=== PATIENT | female | born 1975 | race Caucasian/White ===

== ENCOUNTER 2020-12-15 16:26 | Outpatient (REF) | payer OTHER, SELFPAY ==
--- NOTE | 2020-12-15 | MM_ITS ---
EXAMINATION: MM SCREENING DIGITAL BREAST TOMOSYNTHESIS, BILATERAL CLINICAL INFORMATION: Screening. Asymptomatic. The lifetime risk of breast cancer based on the Tyrer-Cuzick Model is 12.1%. COMPARISON: Mammography: 10/06/2019 and studies dating back to 06/28/2017. TECHNIQUE: Digital breast tomosynthesis is performed in both the craniocaudal and mediolateral oblique views along with computer-aided detection (CAD). Synthesized 2D images are generated from the tomosynthesis. FINDINGS: The breasts are heterogeneously dense, which may obscure small masses (ACR BI-RADS breast composition Category c). There is a stable parenchymal pattern within the right breast without new abnormal dominant mass or suspicious grouping of microcalcifications. Within the deep superior aspect of the left breast, approximately 7 cm from the nipple, there is a 1.2 x 0.8 cm partially circumscribed slightly lobulated density for which further evaluation with spot compression view and possible ultrasound is recommended. I do not definitely see a correlate on craniocaudal view, however, it is slightly lateral due to a large amount of dense tissue in that region. MM/MM tomosynthesis screening BI IMPRESSION: Left breast density for further evaluation as described. ASSESSMENT: BI-RADS 0: Incomplete - Need Additional Imaging Evaluation RECOMMENDATION: 1. Additional views of the left breast. 2. Targeted ultrasound if warranted after review of the additional views. 3. Radiology department staff will contact the patient for additional imaging. This patient's information was entered into a reminder system with a target due date for their next mammogram.
== END 2020-12-15 16:27 | disposition home or self-care (01) ==
LOC: HO.MAMMO 16:26
PROVIDERS: PCP Internal Medicine; Visit Provider Internal Medicine
DX: Z12.31 Encounter for screening mammogram for malignant neoplasm of breast (principal)
CPT/HCPCS: 77063; 77067

== ENCOUNTER 2020-12-22 07:43 | Outpatient (REF) | payer OTHER, SELFPAY ==
--- NOTE | 2020-12-22 07:49 | MM_ITS ---
EXAMINATION: MM DIAGNOSTIC DIGITAL BREAST TOMOSYNTHESIS, LEFT CLINICAL INFORMATION: Recall from screening for question of asymmetric density posterior mid breast on MLO view without CT correlate. COMPARISON: Mammography: 12/15/2020, 10/06/2019, 07/16/2018 TECHNIQUE: Digital breast tomosynthesis is performed. 2D images are generated from the tomosynthesis. The following views are obtained: 3-D ML, 3-D spot MLO FINDINGS: The breasts are heterogeneously dense, which may obscure small masses (ACR BI-RADS breast composition Category c). The additional views show no asymmetric density or mass or developing density from prior studies. In retrospect, finding noted on recent screening exam shows mixture of fibroglandular and fatty tissue composition consistent with shifting fibroglandular densities. Results are discussed with the patient at time of visit. MM/MM tomosynthesis added views L IMPRESSION: Additional views show no significant changes from prior studies. ASSESSMENT: BI-RADS 1: Negative RECOMMENDATION: Routine annual mammography screening. This patient's information was entered into a reminder system with a target due date for their next mammogram.
== END 2020-12-22 07:44 | disposition home or self-care (01) ==
LOC: HO.MAMMO 07:43
PROVIDERS: Visit Provider Internal Medicine
DX: R92.2 Inconclusive mammogram (principal)
CPT/HCPCS: 77061; 77065

== ENCOUNTER 2022-05-24 08:19 | Outpatient (REF) | payer OTHER, SELFPAY ==
--- NOTE | ~2022-05-24 | MM_ITS ---
EXAMINATION: MM SCREENING DIGITAL BREAST TOMOSYNTHESIS, BILATERAL CLINICAL INFORMATION: Screening. Asymptomatic. The lifetime risk of breast cancer based on the Tyrer-Cuzick Model is 12%. COMPARISON: Mammography: 12/22/2020, 12/15/2020, 10/06/2019, 07/16/2018 TECHNIQUE: Digital breast tomosynthesis is performed in both the craniocaudal and mediolateral oblique views along with computer-aided detection (CAD). Synthesized 2D images are generated from the tomosynthesis. FINDINGS: The breasts are heterogeneously dense, which may obscure small masses (ACR BI-RADS breast composition Category c). There are no significant masses, abnormal calcifications, or other abnormalities. Parenchymal pattern is similar to prior study. No significant changes. MM/MM tomosynthesis screening BI IMPRESSION: No mammographic evidence of malignancy. ASSESSMENT: BI-RADS 1: Negative RECOMMENDATION: Routine annual mammography screening. This patient's information was entered into a reminder system with a target due date for their next mammogram.
== END 2022-05-24 08:20 | disposition home or self-care (01) ==
LOC: HO.MAMMO 08:19
PROVIDERS: PCP Internal Medicine; Visit Provider Internal Medicine
DX: Z12.31 Encounter for screening mammogram for malignant neoplasm of breast (principal)
CPT/HCPCS: 77063; 77067

== ENCOUNTER → 2023-06-05 15:45 | Outpatient (BNV) | payer OTHER, SELFPAY | PROVIDERS: PCP Student in an Organized Health Care Education/Training Program; Visit Provider Radiology Diagnostic Radiology | DX: Z12.31 Encounter for screening mammogram for malignant neoplasm of breast (principal) | CPT/HCPCS: 77063; 77067 ==

== ENCOUNTER 2023-06-05 15:49 | Outpatient (REF) | payer OTHER, SELFPAY ==
--- NOTE | ~2023-06-05 | MM_ITS ---
EXAMINATION: MM SCREENING DIGITAL BREAST TOMOSYNTHESIS, BILATERAL CLINICAL INFORMATION: Screening. Asymptomatic. The lifetime risk of breast cancer based on the Tyrer-Cuzick Model is 10.8%. COMPARISON: Mammography: This study is compared with prior exams dating back to 2019. TECHNIQUE: Digital breast tomosynthesis is performed in both the craniocaudal and mediolateral oblique views along with computer-aided detection (CAD). Synthesized 2D images are generated from the tomosynthesis. FINDINGS: The breasts are heterogeneously dense, which may obscure small masses (ACR BI-RADS breast composition Category c). In the lower inner quadrant of the right breast, there is an asymmetry for which additional mammographic imaging is advised. In the left breast, there are no significant masses, abnormal calcifications, or other abnormalities. MM/MM tomosynthesis screening BI IMPRESSION: Asymmetry of the lower inner quadrant right breast warrants additional mammographic imaging. No mammographic signs of malignancy left breast. ASSESSMENT: BI-RADS BI-RADS 0 - Incomplete: Needs additional Imaging. RECOMMENDATION: 1. Additional views of the right breast 2. Targeted ultrasound if warranted after review of the additional views. 3. Radiology department staff will contact the patient for additional imaging. Additional Imaging required This examination should not preclude the clinical evaluation of a suspicious palpable abnormality. This patient's information was entered into a reminder system with a target due date for their next mammogram.
== END 2023-06-05 15:50 | disposition home or self-care (01) ==
LOC: HO.MAMMO 15:49
PROVIDERS: PCP Student in an Organized Health Care Education/Training Program; Visit Provider Internal Medicine
DX: Z12.31 Encounter for screening mammogram for malignant neoplasm of breast (principal)
CPT/HCPCS: 77063; 77067

== ENCOUNTER 2023-07-10 13:22 | Outpatient (REF) | payer OTHER, SELFPAY ==
--- NOTE | ~2023-07-10 | US_ITS ---
EXAMINATION: MM DIAGNOSTIC RIGHT BREAST TOMOSYNTHESIS US BREAST LIMITED, RIGHT MAMMOGRAPHY: CLINICAL INFORMATION: Follow-up one view asymmetry inferomedial right breast seen on screening exam MLO view only. The lifetime risk of breast cancer based on the Tyrer-Cuzick Model is 10.8%. COMPARISON: Mammography: Screening mammography 06/05/2023. Studies dating back to 2020. TECHNIQUE: Digital right tomosynthesis is performed in both the medial lateral views, as well as a right spot magnification 3-D MLO view, along with computer-aided detection (CAD). Synthesized 2D images are generated from the tomosynthesis. FINDINGS: The breasts are heterogeneously dense, which may obscure small masses (ACR BI-RADS breast composition Category c). Diagnostic views demonstrates no definite persistent mass or persistent asymmetry right breast inferiorly. Results are provided to the patient at time of visit by the technologist. ULTRASOUND: CLINICAL INFORMATION: Evaluate one view asymmetry inferomedial right breast seen on screening exam MLO view only. COMPARISON: None TECHNIQUE: Targeted sonographic evaluation right breast 3-9 o'clock axis was performed using a high frequency linear transducer. Selected archived documentation. FINDINGS: RIGHT BREAST: There is somewhat dense fibroglandular tissue. No suspicious mass is seen. No cystic abnormality. There is no pathologic acoustic shadowing. No correlate to the mammographic focus of concern. US/US breast RT limited mamm only IMPRESSION: No mammographic or sonographic evidence of malignancy. Recommend the patient return to routine annual screening mammography. OVERALL ASSESSMENT: Mammography: BI-RADS 1 - Negative Ultrasound: BI-RADS 1 - Negative RECOMMENDATION: 1 year F/U This patient's information was entered into a reminder system with a target due date for their next mammogram.
== END 2023-07-10 13:23 | disposition home or self-care (01) ==
LOC: HO.MAMMO 13:22
PROVIDERS: PCP Internal Medicine; Visit Provider Student in an Organized Health Care Education/Training Program
DX: R92.8 Other abnormal and inconclusive findings on diagnostic imaging of breast (principal)
CPT/HCPCS: 76642; 77061; 77065

== ENCOUNTER → 2023-07-10 13:30 | Outpatient (BNV) | payer OTHER, SELFPAY | PROVIDERS: PCP Internal Medicine; Visit Provider Radiology Diagnostic Radiology | DX: N64.89 Other specified disorders of breast (principal) | CPT/HCPCS: 76642; 77061; 77065 ==

== ENCOUNTER → 2024-07-16 10:30 | Outpatient (BNV) | payer OTHER, SELFPAY | PROVIDERS: PCP Student in an Organized Health Care Education/Training Program; Visit Provider Internal Medicine | DX: Z12.31 Encounter for screening mammogram for malignant neoplasm of breast (principal) | CPT/HCPCS: 77063; 77067 ==

== ENCOUNTER 2024-07-16 10:33 | Outpatient (REF) | payer OTHER, SELFPAY ==
--- NOTE | ~2024-07-16 | MM_ITS ---
EXAMINATION: MM SCREENING DIGITAL BREAST TOMOSYNTHESIS, BILATERAL CLINICAL INFORMATION: Screening. Asymptomatic. COMPARISON: Mammography: Comparison is made with available priors. TECHNIQUE: Digital breast tomosynthesis is performed in both the craniocaudal and mediolateral oblique views along with computer-aided detection (CAD). Synthesized 2D images are generated from the tomosynthesis. FINDINGS: The breasts are heterogeneously dense, which may obscure small masses (ACR BI-RADS breast composition Category c). There are no significant masses, abnormal calcifications, or other abnormalities. MM/MM tomosynthesis screening BI IMPRESSION: No mammographic evidence of malignancy. ASSESSMENT: BI-RADS BI-RADS 1 - Negative RECOMMENDATION: Routine annual mammography screening. 1 year F/U This examination should not preclude the clinical evaluation of a suspicious palpable abnormality. This patient's information was entered into a reminder system with a target due date for their next mammogram. Electronically signed by: Elizabeth Russ DO 08/13/2024 08:53 PM EDT
== END 2024-07-16 10:34 | disposition home or self-care (01) ==
LOC: HO.MAMMO 10:33
PROVIDERS: PCP Student in an Organized Health Care Education/Training Program; Visit Provider Student in an Organized Health Care Education/Training Program
DX: Z12.31 Encounter for screening mammogram for malignant neoplasm of breast (principal)
CPT/HCPCS: 77063; 77067

== ENCOUNTER 2025-07-14 09:04 | Outpatient (REF) | payer OTHER, SELFPAY ==
--- NOTE | 2025-07-14 09:07 | EMG_ITS ---
Patient Complaints: Left upper extremity paresthesia, Rule out C7 radiculopathy Left median and ulnar motor and sensory studies were performed left radial sensory and median and lateral antecubital brachial sensory studies were performed and EMG needle examination was performed. Impression: This study revealed mild left ulnar neuropathy across elbow. Otherwise no significant abnormality was noted. MTDD
--- OUTSIDE RECORDS SUMMARY | 2025-07-14 09:59 | XMS_ITS ---
Author Name [facility] Organization Unknown History of Medication Use Medication Directions Dispensed Refills Start Date End Date Stat us benzonatate (TESSALON) 200 mg capsule Take 1 capsule (200 mg total) by mouth 3 (three) times daily as needed for cough for up to 7 days. 09/29/2024 10/07/2024 active sertraline (ZOLOFT) 100 mg tablet Take 1 tablet (100 mg total) by mouth daily. 08/28/2024 active No known medications No known medications active Problems Problem Status Onset Date Problem Type Date of Resolution Source Rupture of ulnar collateral ligament of right thumb, subsequent encounter active EncounterDiagnosisAct CCT Acute cough active EncounterDiagnosisAct CT_[facility]ALEUC Encounters Encounter Type Encounter Reason Primary Diagnosis Location Date [facility] Pain in right finger(s) Pain in right finger(s) [facility] 06/17[facility]2025 [facility] 06/03/2025 Ambulatory Pain in right finger(s) Pain in right finger(s) [facility] 06/03/2025 Ambulatory Pain in right finger(s) Pain in right finger(s) [facility] 05/13/2025 Ambulatory Finger Injury Finger Injury [facility] 05/07/2025 Ambulatory Cough [facility] 09/29/2024 Ambulatory [facility] 09/29/2024 Care Team Organization Name Specialty Phone Email Start Date End [facility] 05/08/2025 [facility] 05/07/2025 [place] [facility] 05/07/2025 [facility] 09/29/2024
--- OUTSIDE RECORDS SUMMARY | 2025-07-14 09:59 | XMS_ITS | Clinical Summary ---
Author Organization [facility] Address [address] [place] [id number] Phone Care Team Providers Care Intelligence Operations Specialist Name Role Phone Alison Peguero MD Primary Care Provider Allergies No known active allergies Medications no115/iron/foli c acid ( 19 ORAL) Active ergocalciferol (DRISDOL) 50,000 unit capsule TAKE 1 CAPSULE BY MOUTH EVERY WEEK FOR 56 DAYS Active hydroCHLOROthia zide 25 MG tablet Take 25 mg by mouth daily. 08/28/2024 Active LORazepam (ATIVAN) 0.5 MG tablet TAKE 1 TABLET BY MOUTH DAILY NEEDED FOR PANIC ATTACK FOR 10 DAYS 06/03/2024 Active progesterone (PROMETRIUM) 200 mg capsule Activ e sertraline (ZOLOFT) 100 MG tablet Take 100 mg by mouth daily. 08/28/2024 Active Encounters Date Type Department Care Team Description 04/24/2025 4:30 PM EDT Office Visit [facility] [address] [address] Mary Emerson, SIRISHA Acute upper respiratory infection (Primary Dx); Sore throat from Last 3 Months Social History Tobacco Use Types Packs/Day Years Used Date Smoking Tobacco: Never Smokeless Tobacco: Never Tobacco Cessation:Counseling Given: Not Answered Education Answer Date Recorded Are you interested in more education? Not on eloy e 03/04/2024 Are you concerned about learning? Not on file 03/04/2024 No 03/04/2024 No 03/04/2024 Digital Access Answer Date Recorded No 03/04/2024 No 03/04/2024 Reliable internet access at home? Not on file 03/04/2024 Device with a working camera? Not on file Comments Unknown Sex and Gender Information Value Date Recorded Sex Assigned at Not on file Legal Sex Female 9:26 PM EDT Gender Identity Not on file Sexual Orientation Not on file Last Filed Vital Signs Vital Sign Reading Time Taken Comments Blood Pressure 134/95 04/24/2025 4:34 PM EDT Pulse 84 04/24/2025 4:34 PM EDT Temperature 37.6 C (99.6 F) 04/24/2025 4:34 PM EDT Respiratory Rate 16 04/24/2025 4:34 PM EDT Oxygen Saturation 97% 04/24/2025 4:34 PM EDT Inhaled Oxygen Concentration - - Weight 81.6 kg (180 lb) 04/24/2025 4:34 PM EDT Height 172.7 cm (5' 8 ) 04/24/2025 4:34 PM EDT Body Mass Index 27.37 04/24/2025 4:34 PM EDT Plan of Treatment Health Maintenance Due Date Last Done Comments LIPID PANEL 1977 POTASSIUM LEVEL 1977 DEPRESSION SCREENING 1989 HEPATITIS C SCREENING 1995 HIV ONE-TIME SCREENING (18-6 5 YEARS) 1995 PAP SMEAR 1998 SCREENING FOR DIABETES 02/15/2012 COLOGUARD 2022 COLONOSCOPY 2022 COLORECTAL CANCER SCREENING 2022 FIT TEST 2022 FOBT 2022 SIGMOIDOSCOPY 2022 VIRTUAL COLONOSCOPY 2022 COVID-19 VACCINE (4 - 2023-2 5 season) 2024 11/12/2021, 02/23/2021, 02/02/2021 MAMMOGRAM 06/05/2025 06/05/2023 Adult Td,Tdap Booster 07/14/2030 07/14/2020 , 11/21/2010 SMOKING STATUS SCREENING (On ce After 26 Yrs) Completed 04/24/2025 HEPATITIS A VACCINES Aged Out No long er eligible based on patient's age to complete this topic HIB VACCINES Aged Out No longer eligi ble based on patient's age to complete this topic MENINGOCOCCAL VACCINES (ACWY) Aged Out No longer eligible based on patient's age to complete this topic MENINGOCOCCAL VACCINES (B) Aged Out N o longer eligible based on patient's age to complete this topic PNEUMOCOCCAL VACCINES (0-49 years) Aged Out No longer eligible b ased on patient's age to complete this topic Medical Devices Not on file Procedures Procedure Name Priority Date/Time Associated Diagnosis Comments POCT RAPID STREP A Routine 04/24/2025 4: 42 PM EDT Sore throat POCT COVID-19 RT-PCR/INFLUENZA A & B/RSV CEPHEID Routine 04/24/2025 4:40 PM EDT Sore throat from Last 3 Months Results * POCT Rapid Strep A (04/24/2025 4:42 PM EDT) [facility] Strep A, PCR Not Detected Not Detected C [facility] 04/24/2025 4:42 PM EDT 04/24/2025 5:09 PM EDT Mary Emerson TREE PRUNER POINT OF CARE TEST ORDE RABAURA Final Result [facility] [place] [id number], [facility] [phone] * POCT COVID-19 RT-PCR/Influenza A & B/RSV (Cepheid) (04/24/2025 4:40 PM EDT) [facility] RSV PCR Negative Negative [facility] SARS-CoV-2 (COVID-19) Negative Negative [facility] POC Influenza A PCR Negative Negative [facility] Influenza B PCR Negative Negative [facility] 04/24/2025 4:40 PM EDT 04/24/2025 5:20 PM EDT Mary Emerson CNP POINT OF CARE TEST ORDE RABAURA Final Result [facility] [address] [id number], [facility] [phone] from Last 3 Months Insurance [employer]IGNA PPO CIGNA PPO CIGNA PPO CIGNA PPO [employer]IG[employer] PPO [employer]IG[employer] PPO Care Teams Intelligence Operations Specialist Relationship Specialty Start Date End Date Alison Peguero MD [address] [phone] PCP - General Family Medicine 04/24/25 Additional Source Comments The information contained in this document represents components of the legal health record. It is not the complete legal health record.[facility]
--- OUTSIDE RECORDS SUMMARY | 2025-07-14 09:59 | XMS_ITS | Clinical Summary ---
Author Organization [address] Address [address] [place] [phone] Care Team Providers Care Rodent Exterminator Name Role Phone Pcp, Does Not Have A Primary Care Provider Unava ilable Allergies No known active allergies Medications sertraline (ZOLOFT) 100 mg tablet Take 1 tablet (100 mg total) by mouth daily. 08/28/2024 Active hydroCHLOROthiaz daniella (HYDRODIURIL) 25 mg tablet Take 1 tablet (25 mg total) by mouth daily. 08/28/2024 Active LORazepam (ATIVAN) 0.5 mg tablet TAKE 1 TABLET BY MOUTH DAILY NEEDED FOR PANIC ATTACK FOR 10 DAYS 06/03/2024 Active Family History Relation Name Status Comments Father Alive Mother Alive Social History Tobacco Use Types Packs/Day Years Used Date Smoking Tobacco: Never Smokeless Tobacco: Never Tobacco Cessation:Counseling Given: Not Answered Alcohol Use Standard Drinks/Week Comments Yes 0 (1 standard drink = 0.6 oz pur e alcohol) Comments Unknown Sex and Gender Information Value Date Recorded Sex Assigned at Not on file Legal Sex Female 3:38 PM EST Gender Identity Not on file Sexual Orientation Not on file Last Filed Vital Signs Vital Sign Reading Time Taken Comments Blood Pressure 155/99 09/29/2024 5:55 PM EST Pulse 69 09/29/2024 5:55 PM EST Temperature 36.8 C (98.2 F) 09/29/2024 5:25 PM EST Respiratory Rate 16 09/29/2024 5:25 PM EST Oxygen Saturation 99% 09/29/2024 5:55 PM EST Inhaled Oxygen Concentration - - Weight 81.6 kg (180 lb) 09/29/2024 5:25 PM EST Height 172.7 cm (5' 8 ) 09/29/2024 5:25 PM EST Body Mass Index 27.37 09/29/2024 5:25 PM EST Plan of Treatment Health Maintenance Due Date Last Done Comments HIV screening 1990 Hepatitis C screening 1995 Cervical cancer screening 1998 Lipid disorder screening 2017 Tetanus adult (Td q 10,TDAP once) 11/21/2020 11/21/2010 Colon cancer screening, Colonoscopy 2022 Diabetes screening 2022 Covid-19 vaccine series ( season) 2024 11/12/2021, 02/23/2021, 02/02/2021 Breast cancer screening 06/05/2025 06/05/2023 Influenza vaccine 07/27/2025 08/25/2022, , 09/24/2019, Additional history exists RSV Immunization (1 - 1-dose 75+ series) 02/15/2052 Meningococcal Vaccine Aged Out No fish jolynn eligible based on patient's age to complete this topic Pneumococcal Vaccine (2 - 49 years) Aged Out No longer eligible based on patient's age to complete this topic Insurance CIGNA CIGNA Care Teams Rodent Exterminator Relationship Specialty Start Date End Date Pcp, Does Not Have A PCP - General 09/29/24
--- OUTSIDE RECORDS SUMMARY | 2025-07-14 09:59 | XMS_ITS | Clinical Summary ---
Author Organization [facility] Address [address] [place] [address] Care Team Providers Care Sample Maker Name Role Phone Louise Peguero MD Primary Care Provider [phone] Allergies No known active allergies Medications No known medications Active Problems No known active problems Encounters Date Type Department Care Team Description 06/17/2025 9:45 AM EDT [place] [address] Sarah Lino PA 06/17/2025 9:30 AM [place] [address] Sarah Lino PA Rupture of ulnar collateral ligament of right thumb, subsequent encounter (Primary Dx) 06/03/2025 8:20 AM EDT [place] [address] Anthony Powell MD 06/03/2025 8:15 AM ED[place] [address] Anthony Powell MD Pain of finger of right hand (Primary Dx); Rupture of ulnar collateral ligament of thumb, right, subsequent encounter 05/13/2025 10:45 [place] [address] Anthony Powell MD Pain of right thumb (Primary Dx) 05/07/2025 3:35 PM EDT Office Visit [facility] [address] [place] [address] Charli Hammer MD Duncan, Kiersten B, RAVEN Pain of right thumb (Primary Dx) 05/07/2025 Travel from Last 3 Months Social History Tobacco Use Types Packs/Day Years Used Date Smoking Tobacco: Never Smokeless Tobacco: Never Tobacco Cessation:Counseling Given: Not Answered Comments Unknown Sex and Gender Information Value Date Recorded Sex Assigned at Not on file Legal Sex Female 3:32 PM EDT Gender Identity Not on file Sexual Orientation Not on file Last Filed Vital Signs Vital Sign Reading Time Taken Comments Blood Pressure 122/89 05/07/2025 4:12 PM EDT Pulse 69 05/07/2025 4:12 PM EDT Temperature 36.9 C (98.5 F) 05/07/2025 4:12 PM EDT Respiratory Rate 18 05/07/2025 4:12 PM EDT Oxygen Saturation 99% 05/07/2025 4:12 PM EDT Inhaled Oxygen Concentration - - Weight 81.6 kg (180 lb) 05/07/2025 4:12 PM EDT Height 172.7 cm (5' 8 ) 05/07/2025 4:12 PM EDT Body Mass Index 27.37 05/07/2025 4:12 PM EDT Plan of Treatment Upcoming Encounters Date Type Department Care Team (Late st Contact Info) Description 07/15/2025 9:45 AM EDT [facility] [address] [place] [address] Anthony Powell MD [address] [place] [id number] Health Maintenance Due Date Last Done Comments Hepatitis C Virus Screening 1977 HIV Screening 1990 DTaP/Tdap/Td Vaccines (1 - Tdap) 02/15/1996 Hepatitis B Vaccines (1 of 3 - 19+ 3-dose series) 02/15/1996 Pap Smear (Ages 21-65) 1998 Mammogram 2017 Colonoscopy 2022 COVID-19 Vaccine ( season) 2024 11/12/2021, 02/23/2021, 02/02/2021 Influenza Vaccine 06/26/2025 08/25/2022, , 08/06/2020, Additional history exists Pneumococcal Vaccine: Pediatric (0-5 Years) and At-Risk Patients (6 to 49 Years) Aged Out No longer eligible based on patient's age to complete this topic Procedures Procedure Name Priority Date/Time Associated Diagnosis Comments XR FINGER (1ST) 2+ VIEWS-RIGHT Routine 06/17/2025 9:46 AM EDT Rupture of ulnar collateral ligament of right thumb, subsequent encounter XR FINGER (1ST) 2+ VIEWS-RIGHT Routine 06/03/2025 8:28 AM EDT Pain of finger of right hand XR HAND 3+ VIEWS-RIGHT Routine 05/08/2025 3:22 PM EDT Pain of right thumb from Last 3 Months Results * XR Finger (1st) 2+ views-Right (06/17/2025 9:46 AM EDT) Only the most recent of2 resultswithin the time period is included. Narrative OAH - 06/17/2025 9:46 AM EDT This exam was performed in office at [facility] and images reviewed by orthopedic provider. Any findings are documented within ambulatory encounter note on date of service. Sarah GARCIA IMG DIAGNOSTIC IMAGING ORDER HENRY Final Result OAH * XR Hand 3+ views-Right (05/08/2025 3:22 PM EDT) Anatomical Region Laterality Modality Hand Right Computed Radiogr aphy 05/08/2025 2:30 PM EDT 05/08/2025 2:30 PM EDT Impressions 05/08/2025 7:16 PM EDT Tiny acute avulsion fracture off of the medial base of the proximal phalanx of the right thumb. Electronically signed by: Louise Peterson MD 05/08/2025 07:16 PM EDT Thank you for referring your patient to us, Louise Peterson MD [phone] (Electronically Signed - 05/08/2025 19:16) Narrative 05/08/2025 7:16 PM EDT PROCEDURE: RADIOGRAPHS OF THE RIGHT HAND COMPLETE 3 OR MORE VIEWS CLINICAL INDICATION: The patient is 50 years old and is Female; Order fell on thumb today. eval for fracture tenderness proximally.; Patient States: Pain and swelling 1st MCP jt TECHNIQUE: Frontal, lateral and oblique views of the right hand. COMPARISON: No relevant prior studies available. FINDINGS: BONES/JOINTS: Tiny acute avulsion fracture off of the medial base of the proximal phalanx of the right thumb. There are degenerative changes involving the DIP joint of the index finger. No dislocation. SOFT TISSUES: Unremarkable. No radiopaque foreign body. Procedure Note Louise Peterson MD - 05/08/2025 PROCEDURE: RADIOGRAPHS OF THE RIGHT HAND COMPLETE 3 OR MORE VIEWS CLINICAL INDICATION: The patient is 50 years old and is Female; Order fell on thumbtoday. eval for fracture tenderness proximally.; Patient States: Pain andswelling 1st MCP jt TECHNIQUE: Frontal, lateral and oblique views of the right hand. COMPARISON: No relevant prior studies available. FINDINGS: BONES/JOINTS: Tiny acute avulsion fracture off of the medial base of theproximal phalanx of the right thumb. There are degenerative changes involving the DIP joint of the indexfinger. No dislocation. SOFT TISSUES: Unremarkable. No radiopaque foreign body. IMPRESSION: Tiny acute avulsion fracture off of the medial base of the proximalphalanx of the right thumb. Electronically signed by: Louise Peterson MD 05/08/2025 07:16 PM EDT RPWorkstation: [id number] Thank you for referring your patient to us, Louise Peterson MD [id number] (Electronically Signed - 05/08/2025 19:16) us Priscilla Ambrocio APRN IMG DIAGNOSTIC IMAGING OR DERABLES Final Result from Last 3 Months Insurance [facility] CIGNA HMO Care Teams Sample Maker Relationship Specialty Start Date End Date Louise Peguero MD [address] [place] [phone] PCP - General Internal Medicine 05/07/25
== END 2025-07-14 09:05 | disposition home or self-care (01) ==
LOC: HO.NEURO 09:04
PROVIDERS: PCP Student in an Organized Health Care Education/Training Program; Visit Provider Student in an Organized Health Care Education/Training Program
DX: R20.2 Paresthesia of skin (principal)
CPT/HCPCS: 95886; 95910

== ENCOUNTER → 2025-07-14 09:07 | Outpatient (BNV) | payer OTHER, SELFPAY | PROVIDERS: PCP Student in an Organized Health Care Education/Training Program; Visit Provider Psychiatry & Neurology Neurology | DX: R20.2 Paresthesia of skin (principal) | CPT/HCPCS: 95886; 95910 ==

== ENCOUNTER 2025-08-01 07:57 | Outpatient (REF) | payer OTHER, SELFPAY ==
--- NOTE | ~2025-08-01 | MM_ITS ---
EXAMINATION: MM SCREENING DIGITAL BREAST TOMOSYNTHESIS, BILATERAL CLINICAL INFORMATION: Screening. Asymptomatic. COMPARISON: Mammography: Comparison is made with available priors TECHNIQUE: Digital breast mammography with tomosynthesis is performed in both the craniocaudal and mediolateral oblique views along with computer-aided detection (CAD). FINDINGS: The breasts are heterogeneously dense, which may obscure small masses (ACR BI-RADS breast composition Category c). There are no significant masses, abnormal calcifications, or other abnormalities. MM/MM tomosynthesis screening BI IMPRESSION: No mammographic evidence of malignancy. ASSESSMENT: BI-RADS BI-RADS 1 - Negative RECOMMENDATION: Routine annual mammography screening. 1 year F/U This examination should not preclude the clinical evaluation of a suspicious palpable abnormality. This patient's information was entered into a reminder system with a target due date for their next mammogram. Electronically signed by: Elizabeth Russ DO 08/04/2025 12:26 PM EDT
--- OUTSIDE RECORDS SUMMARY | 2025-08-01 08:00 | XMS_ITS | Clinical Summary ---
Author Organization [facility] Address [address] [place] [phone] Phone Care Team Providers Care Business Operations Consultant Name Role Phone Alison Peguero MD Primary Care Provider [phone] Allergies No known active allergies Medications no115/iron/foli [...] 100 mg by mouth daily. 08/28/2024 Active Social History Tobacco Use Types Packs/Day Years [...] HEPATITIS C SCREENING 1995 HIV ONE-TIME SCREENING (18-65 YEARS) 1995 PAP SMEAR 1998 SCREENING FOR DIABETES 02/15/2012 COLOGUARD 2022 COLONOSCOPY 2022 COLORECTAL CANCER SCREENING 2022 FIT TEST 2022 FOBT 2022 SIGMOIDOSCOPY 2022 VIRTUAL COLONOSCOPY 2022 MAMMOGRAM 06/05/2025 06/05/2023 INFLUENZA VACCINE (#1) 2025 , 08/06/2020, 09/24/2019, Additional history exists COVID-19 VACCINE (2024- season) 2025 11/12/2021, 02/23/2021, 02/02/2021 Adult Td,Tdap Booster 07/14/2030 07/14/2020, 010 SMOKING STATUS SCREENING (Once After 26 Yrs) Completed 04/24/2025 HEPATITIS A [...] (0-49 years) Aged Out No longer eligible based on patient's age to complete this topic Medical Devices Not on file Insurance CIGNA PPO CIGNA PPO CIGNA PPO CIGNA PPO CIGNA PPO CIGNA PPO Care Teams Business Operations Consultant Relationship Specialty Start Date End Date Alison Peguero MD [address] [facility] [address] [place] [phone] PCP - General Family Medicine 04/24/25 Additional Source Comments The information contained in this document represents components of the legal health record. It is not the complete legal health record.[facility]
--- OUTSIDE RECORDS SUMMARY | 2025-08-01 08:00 | XMS_ITS | Clinical Summary ---
Author Organization [facility] Address [address] [place] [address] Care Team Providers Care In Flight Refueling Manager Name Role Phone Louise Peguero MD Primary Care Provider [phone] Allergies No known active allergies Medications No known medications Active Problems No known active problems Encounters Date Type Department Care Team Description 07/15/2025 9:45 AM EDT [place] [address] Anthony Powell MD Rupture of ulnar collateral ligament of right thumb, subsequent encounter (Primary Dx) 06/17/2025 9:45 AM EDT Ancillary Procedure Orth[facility] [address] [address] Sarah Lino PA 06/17/2025 9:30 AM EDT [place] [address] Sarah Lino PA Rupture of ulnar collateral ligament of right thumb, subsequent encounter (Primary Dx) 06/03/2025 8:20 AM EDT Ancillary Procedure [place] [address] Anthony Powell MD 06/03/2025 8:15 AM EDT Office Visit [facility] [address] [address] Anthony Powell MD Pain of finger of right hand (Primary Dx); Rupture of ulnar collateral ligament of thumb, right, subsequent encounter 05/13/2025 10:45 [place] [address] Anthony Powell MD Pain of right thumb (Primary Dx) 05/07/2025 3:35 PM EDT [facility] [address] [place] [address] Charli Hammer MD Duncan, Kiersten B, APRN Pain of right thumb (Primary Dx) 05/07/2025 [...] 05/07/2025 4:12 PM EDT Plan of Treatment Health Maintenance Due Date Last Done Comments Hepatitis C Virus Screening 1977 HIV Screening 1990 DTaP/Tdap/Td Vaccines (1 - Tdap) 02/15/1996 Hepatitis B Vaccines (1 of 3 - 19+ 3-dose series) 02/15/1996 Pap Smear (Ages 21-65) 1998 Mammogram 2017 Colonoscopy 2022 COVID-19 Vaccine ( - season) 2024 11/12/2021, 02/23/2021, 02/02/2021 Influenza Vaccine [...] was performed in office at [facility] and images reviewed by orthopedic provider. Any [...] your patient to us, Louise Peterson MD [id number] (Electronically Signed - 05/08/2025 19:16) Narrative 05/08/2025 [...] Peterson MD 05/08/2025 07:16 PM EDT RPWorkstation: [id number] Thank you for referring your patient to us, Louise Peterson MD [id number] (Electronically Signed - 05/08/2025 19:16) Priscilla Ambrocio APRN IMG DIAGNOSTIC IMAGING OR DERABLES Final Result from Last 3 Months [facility] Care Teams In Flight Refueling Manager Relationship Specialty Start Date End Date Louise Pegueor MD [address] [place] [phone] PCP - General Internal Medicine 05/07/25
--- OUTSIDE RECORDS SUMMARY | 2025-08-01 08:00 | XMS_ITS | Clinical Summary ---
Author Organization [address] Address [address] [place] [id number] Care Team Providers Care Operation Supervisor Name Role Phone Pcp, Does Not Have [...] cancer screening, Colonoscopy 2022 Diabetes screening 2022 Breast cancer screening 06/05/2025 06/05/2023 Covid-19 vaccine series ( season) 2025 11/12/2021, 02/23/2021, 02/02/2021 Influenza vaccine 07/27/2025 08/25/2022, , 09/24/2019, Additional history exists RSV Immunization (1 - 1-dose 75+ series) 02/15/2052 Meningococcal B Vaccine Aged Out No l onger eligible based on patient's age to complete this topic Meningococcal Vaccine Aged Out No fish jolynn eligible based on patient's age to complete this topic Pneumococcal Vaccine (2 - 49 years) Aged Out No longer eligible based on patient's age to complete this topic Insurance CIG[employer] CIGNA CIGNA Care Teams Operation Supervisor Relationship Specialty Start Date End Date Pcp, Does Not Have A PCP - General 09/29/24
== END 2025-08-01 07:58 | disposition home or self-care (01) ==
LOC: HO.MAMMO 07:57
PROVIDERS: PCP Student in an Organized Health Care Education/Training Program; Visit Provider Student in an Organized Health Care Education/Training Program
DX: Z12.31 Encounter for screening mammogram for malignant neoplasm of breast (principal)
CPT/HCPCS: 77063; 77067

== ENCOUNTER → 2025-08-01 08:30 | Outpatient (BNV) | payer OTHER, SELFPAY | PROVIDERS: PCP Student in an Organized Health Care Education/Training Program; Visit Provider Internal Medicine | DX: Z12.31 Encounter for screening mammogram for malignant neoplasm of breast (principal) | CPT/HCPCS: 77063; 77067 ==